=== PATIENT | female | born 1995 | race Caucasian/White ===

== ENCOUNTER 2018-08-06 03:11 | Emergency (ER) | payer MEDICAID, SELFPAY ==
[2018-08-06 03:15] VITALS: BP 116/70; PULSE 91; RESP 18; TEMP 36.8; O2SAT 96
[2018-08-06 03:30] VITALS: BP 102/69; PULSE 89; RESP 16; O2SAT 97
--- NOTE | 2018-08-06 03:33 | W.ED.GENAD ---
Discharge Plan Disposition Patient Disposition: HOME Condition: Good Discharge Details Chief Complaint: Seizure Clinical Impression: New onset seizure Primary Care Provider: Doc Oquendo ED Provider: Doc Skaggs Home Meds and New Rx's Prescriptions: New levetiracetam [Keppra] 250 mg tablet 500 mg PO BID Qty: 120 RF: 0 Continued citalopram [Celexa] 40 MG tablet 40 mg PO DAILY RF: 0 Discharge Instructions Instructions: New-Onset Seizure in Adults (ED) Additional Instructions: Avoid drugs. Taper your citalopram off by starting to take 20 mg a day this weekend and contacting primary care for further tapering. Seizure precautions as we discussed, specifically no driving, swimming, heights. Begin Keppra and continue Keppra until seen by neurology. We will try to get you into Dr. Vizcarra within the next week or 2. Return to the emergency department for any change in neurologic status, further seizures, new or worsening headaches, other concerns. Referrals: Doc Oquendo [Primary Care Provider] - Elif Vizcarra MD [ [facility]YSICIAN] - Medical Decision Making Description of events certainly sound like possible seizure. She is normal currently with no complaints. Will initiate work-up including head CT, laboratory studies, urine drug screen. Patient has remained neurologically intact with no further seizure-like activity here. Head CT is negative. Blood work is unremarkable. Chemistries and TSH is normal. Urine drug screen is positive for opiates, cocaine, marijuana. Patient states she did take pain pill a few days ago for ovarian cyst pain. She denies cocaine and does not understand how that possibly could have gotten in her system. Case discussed with neurology at [facility], Dr. Randle. Specifically asked whether antiepileptics should be started or not. Given that the history seems fairly consistent with seizure and very little side effects with Keppra, he is recommending starting 500 mg twice daily. We will load her with 1 g IV here. Have discussed seizure precautions with the patient and . Will refer to neurology, Dr. Vizcarra for further evaluation and management. Patient has been on the citalopram for a long time. One of its major adverse effects however is seizures. Whether this has anything to do with it or not, I think we should probably start tapering it. I have asked her to drop from 40 mg to 20 mg by cutting the pill in half. She will contact her primary care doctor for further tapering of this medication while waiting to be seen by neurology. Patient to return to ED for any neurologic change, further seizures, headache, other concerns or changes. Lab Data Lab results reviewed: Yes I reviewed the patient's lab results. HPI General Mode of arrival: ambulatory. Date/Time Provider Initiated Documentation: 08/06/18 03:22. Limitations to Documentation: no limitations. Information obtained by: patient and family. HPI Narrative: Patient brought in by her rose for evaluation of possible seizure. Patient has no previous history of seizures. reports that he thought she was sleeping but she started to make weird noises like she was choking. He tried waking her but she would not. He then rolled her over and noticed that she was pretty blue in the face. She was unresponsive. He felt and witnessed some jerking of her body but that was not completely obvious. Patient has no recollection of this. got her out into the hallway before she became responsive. Initially very confused. Subsequently came back to baseline. Currently has no complaints. She has not been ill. She denies headache. She denies biting her tongue or have any incontinence. She denies drug use. She is not a drinker. Related Data Home Medications Medication Instructions Recorded Confirmed citalopram [Celexa] 40 mg PO DAILY tab-cap 08/30/17 08/06/18 levetiracetam [Keppra] 500 mg PO BID #120 tab 08/06/18 Previous Rx's Medication Instructions Recorded levetiracetam [Keppra] 500 mg PO BID #120 tab 08/06/18 Allergies Allergy/AdvReac Type Severity Reaction Status Date / Time acetaminophen [From Vicodin] Allergy Nausea Unverified 08/06/18 03:24 codeine Allergy sob,rashing Unverified 08/06/18 03:24 heart rate fluoxetine [From Prozac] Allergy Psychosis Unverified 08/06/18 03:24 hydrocodone [From Vicodin] Allergy Nausea Unverified 08/06/18 03:24 General Stated Complaint: Seizure KATYA: 3 Review of Systems Review of Systems 01/02 Review of Systems completed and is negative except as stated above in HPI (Systems reviewed: Const, Eyes, ENT, Resp, CV, GI, , MSK, Skin, Neuro) [facility] Medical History Asthma Depression Pain, female pelvic Family History Other Essential hypertension Personal history of malignant neoplasm Thyroid disease Social History Smoking/Tobacco Use Status: Current every day Tobacco Type: cigarettes Alcohol Intake: current Alcohol Intake frequency: holidays/special occasions only Drug use: Daily Substance use type: marijuana Do you feel safe at home: Yes Do you feel safe in your relationship?: Yes Exam Narrative Exam Narrative: Vitals: Afebrile with normal vital signs. Const: WDWN female in NAD. HEENT: NC/AT. Normal facial exam. Eyes: Normal conjunctiva and sclera. PERRL and EOMI. Neck: Supple. Trachea midline. Lungs: Normal respiratory effort. Lungs are clear. Cor: RRR without murmur/gallop. Good radial pulses. GI: Soft. NT/ND. No guarding or rebound. Back: No CVAT. Neuro: A+O x 3. CN II and XII. Normal gait, speech, cognition, strength and sensation. Ext: No C/C/E. No deformity or tenderness. Skin: Warm and dry without rash. Course Vital Signs Temperature 98.2 F 08/06/18 03:15 Pulse 91 H 08/06/18 03:15 Respiratory Rate 18 08/06/18 03:15 Blood Pressure 116/70 08/06/18 03:15 Pulse Oximetry 96 08/06/18 03:15 Temperature 98.2 F 08/06/18 03:15 Temperature Source Skin 08/06/18 03:15 Pulse 91 H 08/06/18 03:15 Respiratory Rate 18 08/06/18 03:15 Respiratory Effort Non-Labored 08/06/18 03:21 Blood Pressure 116/70 08/06/18 03:15 Blood Pressure Position Supine 08/06/18 03:15 Pulse Oximetry 96 08/06/18 03:15 Oxygen Delivery Method Room Air 08/06/18 03:15 Oxygen Flow Rate 0 08/06/18 03:15 Pain Level 0 08/06/18 03:15
[2018-08-06 04:03] LABS: Abs Immature Grans 0.01 k/cumm (0.0-0.09); Absolute Basophil Count 0.01 k/cumm (0.0-0.2); Absolute Eosinophil Count 0.08 k/cumm (0.0-0.7); Absolute Lymphocyte Count 2.26 k/cumm (1.2-3.4); Absolute Monocyte Count 1.05 k/cumm (0.11-0.7); Absolute Neutrophil Count 6.16 k/cumm (1.2-6.7); Basophils % 0.1; Eosinophils % 0.8; HCT 39.9 % (36.0-46.0); HGB 13.9 g/dL (12.0-15.5); Immature Grans % 0.1; Lymphocytes % 23.6; Mean Corp. HGB Concentration 34.8 g/dL (32.0-36.0); Mean Corpuscular Hemoglobin 30.5 pg (27.0-33.0); Mean Corpuscular Volume 87.7 fL (80-95); Mean Platelet Volume 10.3 fL (8.0-11.0); Neutrophils % 64.4; Platelet Count 244 x1000/uL (130-400); RBC 4.55 m/cumm (4.00-5.20); RBC Distribution Width 12.7 % (11.7-14.6); White Blood Cell Count 9.57 k/cumm (4.4-10.8)
[2018-08-06 04:26] LABS: ALT 29 U/L (12-78); AST 23 U/L (15-37); Albumin 4.3 g/dL (3.4-5.0); Alkaline Phosphatase 71 U/L (46-116); BUN 8 mg/dL (7-18); Bilirubin, Total 0.5 mg/dL (0.2-1.0); CREATININE 0.78 mg/dL (0.55-1.02); Calcium 9.3 mg/dL (8.5-10.1); Chloride 99 mmol/L (98-107); Glucose 112 mg/dL (70-100); Potassium 3.8 mmol/L (3.5-5.1); Sodium 137 mmol/L (136-145); TSH 2.15 uIU/mL (0.358-3.74); Total Protein 8.6 g/dL (6.4-8.2)
[2018-08-06 04:30] VITALS: BP 100/50; PULSE 86; RESP 17; O2SAT 98
--- NOTE | 2018-08-06 05:17 | DI.CT_ITS ---
SYMPTOM/DIAGNOSIS: SEIZURE NONCONTRAST HEAD CT: No intracranial hemorrhage, mass or infarct is seen. There is some mucus retention within both maxillary sinuses, left greater than right. The mastoid air cells appear clear. IMPRESSION: Sinus disease. No acute abnormality.
[2018-08-06 05:22] LABS: *AMPHETAMINES SCREEN URINE Negative (Negative); *BARBITURATES SCREEN URINE Negative (Negative); *BENZODIAZEPINES SCREEN URINE Negative (Negative); Cannabinoids THC POSITIVE (Negative); Cocaine Screen,Urine POSITIVE (Negative); METHADONE URINE SCREEN Negative (Negative); OPIATES URINE SCREEN POSITIVE (Negative); Tricyclic Antidepressants Negative (Negative)
--- NOTE | 2018-08-06 05:22 | DI.VRAD_ITS ---
EXAM: CT Head Without Contrast EXAM DATE/TIME: 08/06/2018 4:17 AM CLINICAL HISTORY: 23 years old, female; Signs and symptoms; Other: Seizure TECHNIQUE: Imaging protocol: Axial computed tomography images of the head without contrast. Coronal and sagittal reformatted images were created and reviewed. Radiation optimization: All CT scans at this facility use at least one of these dose optimization techniques: automated exposure control; mA and/or kV adjustment per patient size (includes targeted exams where dose is matched to clinical indication); or iterative reconstruction. COMPARISON: No relevant prior studies available. FINDINGS: Brain: Typical for age. No hemorrhage. No evidence of acute infarct. No mass. Ventricles: No ventriculomegaly. Bones/joints: Unremarkable. Sinuses: No sinus fluid. Mastoid air cells: Unremarkable. Soft tissues: Unremarkable. IMPRESSION: No acute intracranial abnormality. Dictated and Authenticated by: Brandon Coronado MD. Ordering:JULIO Roach MD
[2018-08-06 05:30] VITALS: BP 100/53; PULSE 76; RESP 14; O2SAT 97
[2018-08-06 06:30] VITALS: BP 99/55; PULSE 82; RESP 16; O2SAT 95
[2018-08-06] MEDS: levETIRAcetam 1,000 MG in Normal Saline 100 ML 400 MG IVPB (07:30)
[2018-08-06 07:59] VITALS: BP 106/53; PULSE 75; RESP 16; O2SAT 99
--- NOTE | 2018-08-08 07:42 | PDOC.ERCMPRO ---
Care Management Progress Note 08/08-Dr. Skaggs requested assistance with a Neurology f/u as soon as possible this week for new onset seizures. Referral faxed to [facility] Neurology this am.
== END 2018-08-06 08:08 | disposition home or self-care (01) ==
PROVIDERS: Emergency Provider Emergency Medicine; PCP Internal Medicine
DX: R56.9 Unspecified convulsions (principal); N83.201 Unspecified ovarian cyst, right side
CPT/HCPCS: 36415; 80053; 80307; 81025; 96365; 99284; 70450; 81003; 83735; 84443; 85025; J1953

== ENCOUNTER 2018-08-24 01:41 | Outpatient (CLI) | payer MEDICAID, SELFPAY ==
--- NOTE | 2018-08-24 15:32 | PDOC.EEG ---
EEG: [facility] Department of Neurology EEG REPORT Date of Recording: Interpreting Physician: Dr. Elif Vizcarra PCP/Referring Provider: Dr. Doc Oquendo Reason for study: Ms. Chilel is a 23-year-old woman with a new onset generalized tonic-clonic seizure. Current Medications: Home Medications Medication Instructions Recorded Confirmed Type levetiracetam [Keppra] 500 mg PO BID #120 tab 08/06/18 08/11/18 Rx citalopram 40 mg tablet 40 mg PO DAILY tab-cap 08/11/18 08/11/18 History METHODS: A 21 channel digitized electroencephalogram was performed in the [facility] Clinical [facility]physiology Laboratory. The 10/20 international system of electrode placement was used and bipolar and referential electrode montages were recorded. In addition to EEG the patient was monitored for EKG and lateral/vertical eye movements. Activation procedures of photic stimulation and hyperventilation were performed if applicable. Video was used during activation procedures and during events where applicable. The duration of the recording was 30 minutes. DESCRIPTION OF EEG: The patient was noted to be awake, drowsy, and asleep during the recording. During maximal wakefulness a 9-Hz posterior background rhythm was present which was well-modulated, symmetrical, reactive to eye opening, and of moderate voltage. With eye opening the background activity changed to a low voltage mixture of alpha, beta, and occasional theta range frequencies. Faster frequencies were present in the bilateral anterior head regions. There was a normal anterior-posterior voltage gradient. During drowsiness, there was attenuation of the posterior dominant background rhythm and vertex waves. Stage II sleep was present with symmetrical sleep spindles, K-complexes, and vertex waves. Activating Procedures: Photic stimulation was performed which produced a symmetrical posterior driving response at various flash frequencies. Hyperventilation was performed with moderate effort and produced mild physiological slowing of the background. EKG: EKG revealed normal sinus rhythm. INTERPRETATION: This EEG is normal during the awake and sleep states as well as during photic stimulation and hyperventilation. PRIOR EEG: none CLINICAL CORRELATION: No focal regions of cerebral dysfunction or epileptiform activity was present. Epilepsy remains a clinical diagnosis and a normal EEG does not rule out epilepsy. Clinical correlation is advised. Elif Vizcarra MD
== END 2018-08-24 02:01 ==
PROVIDERS: PCP Internal Medicine; Visit Provider Psychiatry & Neurology Neurology
DX: R68.89 Other general symptoms and signs (principal); R56.9 Unspecified convulsions
CPT/HCPCS: 95819

== ENCOUNTER 2018-09-05 00:57 | Outpatient (CLI) | payer MEDICAID, SELFPAY ==
--- NOTE | 2018-09-05 10:47 | DI.MRI_ITS ---
SYMPTOM/DIAGNOSIS: NEW ONSET SEIZURE, R56.9, UNSPECIFIED CONVULSIONS BRAIN MRI: Comparison is made with head CT dated 08/06/18. T 2 sagittal, T 1, T 2, FLAIR, diffusion and gradient echo axial as well as T 2 coronal sequences were performed. No intracranial hemorrhage, mass or infarct is seen. The ventricles are normal in size. There are no abnormal high signal lesions in the white matter. The flow voids appear intact in the [place] vasculature. There are no abnormal areas of restricted diffusion. The orbits and sinuses are unremarkable. No pituitary enlargement is seen. IMPRESSION: Negative MRI of the brain.
== END 2018-09-05 01:17 ==
PROVIDERS: PCP Internal Medicine; Visit Provider Psychiatry & Neurology Neurology
DX: R56.9 Unspecified convulsions (principal)
CPT/HCPCS: 70551